=== PATIENT | male | born 1985 | race African-American/Black ===

== ENCOUNTER 2018-10-25 10:10 | Emergency (ER) | payer OTHER ==
[~2018-10-25] VITALS: Ht 172.7 cm; Wt 117.9 kg
[~2018-10-25 10:10] MED LIST: ALBU2.5V8 INH; PRED20TA PO
[2018-10-25 10:35] VITALS: BP 143/83
[2018-10-25] MEDS ORDERED: CEPH-264 PO (11:19)
[2018-10-25] MEDS ORDERED: NAPR-683 PO (11:19)
--- NOTE | 2018-10-25 11:20 | PHYS DOC ---
Past Medical History Past Medical History: Bronchitis (ERIKA RINCON MD) Past Surgical History: No Surgical History (ERIKA RINCON MD) Alcohol Use: None Drug Use: None (ERIKA RINCON MD) Adult General Chief Complaint Chief Complaint: TOE PROBLEM HPI HPI Patient is a 33 year old male who presents with complaining of left great ingrown toenail. Patient states he has had history of off-and-on problem with his left great toenail and seen at urgent care and took topical antibiotic with improvement of his condition but for the last 2 weeks has had painful bulging area in lateral side of left great toenail that does not getting better with topical antibiotic and pain medication. Patient denies fever and chills, injury , nausea and vomiting, focal neuro deficit. (ERIKA RINCON MD) Review of Systems Review of Systems Constitutional: Denies fever or chills [] Eyes: Denies change in visual acuity, redness, or eye pain [] HENT: Denies nasal congestion or sore throat [] Respiratory: Denies cough or shortness of breath [] Cardiovascular: No additional information not addressed in HPI [] GI: Denies abdominal pain, nausea, vomiting, bloody stools or diarrhea [] : Denies dysuria or hematuria [] Musculoskeletal: Denies back pain, reports joint pain [] Integument: Denies rash or skin lesions [] Neurologic: Denies headache, focal weakness or sensory changes [] Endocrine: Denies polyuria or polydipsia [] All other systems were reviewed and found to be within normal limits, except as documented in this note. (ERIKA RINCON MD) Allergies Allergies Allergies Coded Allergies Type Severity Reaction Last Updated Verified No Known Drug Allergies 03/22/14 No (CHRISTIANO CAICEDO APRN) Physical Exam Physical Exam Constitutional: Well developed, well nourished, mild distress, non-toxic appearance. [] HENT: Normocephalic, atraumatic. Eyes: PERRLA, EOMI, conjunctiva normal, no discharge. [] Neck: Normal range of motion, no tenderness, supple, no stridor. [] Cardiovascular:Heart rate regular rhythm, no murmur [] Lungs & Thorax: Bilateral breath sounds clear to auscultation [] Extremities: Left great toenail with marked erythema and area of inflamed tissue in lateral side of toenail without drainage of pus. Neurologic: Alert and oriented X 3, normal motor function, normal sensory function, no focal deficits noted. [] Psychologic: Affect normal, judgement normal, mood normal. [] (ERIKA RINCON MD) Current Patient Data Vital Signs Vital Signs Date Time Temp Pulse Resp B/P (MAP) Pulse Ox O2 Delivery O2 Flow Rate FiO2 10/25/18 10:35 98.7 90 18 143/83 (103) 97 Room Air 98.7 (CHRISTIANO CAICEDO APRN) EKG EKG [] (ERIKA RINCON MD) Radiology/Procedures Radiology/Procedures [] (ERIKA RINCON MD) Radiology/Procedures The patient's left great toe was cleaned with alcohol. Lidocaine was instilled and using an 11 blade the overgrowth of tissue was removed. Bleeding was controlled with pressure. He was then placed with nonadherent dressing and Coban. He tolerated the procedure well. (CHRISTIANO CAICEDO APRN) Course & Med Decision Making Course & Med Decision Making Evaluation of patient in ER showed 33-year-old male patient with complaining of left ingrown great toenail with inflamed tissue in lateral side of, that was removed by Sonia Caicedo nurse practitioner with improvement of his condition. Plan to discharge patient home with prescription of Keflex and ibuprofen and instruction follow up with podiatric Dr. Angel. (ERIKA RINCON MD) Dragon Disclaimer Dragon Disclaimer This electronic medical record was generated, in whole or in part, using a voice recognition dictation system. (ERIAK RINCON MD) Departure Departure Impression: Primary Impression: Ingrown toenail of left foot with infection Disposition: HOME, SELF-CARE (at 1117) Condition: IMPROVED Referrals: NO PCP (PCP) KAVYA ANGEL DPM Patient Instructions: Infected Ingrown Toenail Additional Instructions: Keep wound clean and dry Follow-up with on-call podiatrics Dr. Angel in 2 or 3 days Return to ER if not getting better Scripts Naproxen (NAPROSYN) 500 Mg Tablet 1 TAB PO BID for pain, #20 TAB Prov: ERIKA RINCON MD 4/14/19 Cephalexin (KEFLEX) 500 Mg Capsule 2 CAP PO Q12HR, #40 CAP Prov: ERIKA RINCON MD 10/25/18 ERIKA RINCON MD Oct 25, 2018 11:20 CHRISTIANO CAICEDO APRN Oct 25, 2018 11:22
== END 2018-10-25 11:41 | disposition home or self-care (01) ==
LOC: ER 10:10
DX: L60.0 Ingrowing nail (principal); L08.89 Other specified local infections of the skin and subcutaneous tissue
CPT/HCPCS: 11730; 99283

== ENCOUNTER 2018-12-06 19:42 | Emergency (ER) | payer OTHER ==
[~2018-12-06] VITALS: Ht 170.2 cm; Wt 117.9 kg
[~2018-12-06 19:42] MED LIST changes: +CEPH-264 PO; +NAPR-683 PO
[2018-12-06 19:55] VITALS: BP 140/77
[2018-12-06] MEDS ORDERED: SILVER NITRATE STICK TP ONE ×2 (20:08→20:30)
[2018-12-06] MEDS ORDERED: LIDOCAINE 1% PF 2 ML VIAL. ONE (20:08)
--- NOTE | 2018-12-06 20:18 | PHYS DOC ---
Past Medical History Past Medical History: Bronchitis Past Surgical History: No Surgical History Additional Information: non smoker Alcohol Use: None Drug Use: None Adult General Chief Complaint Chief Complaint: PAIN CONTROL HPI HPI Patient is a 33 year old male who presents with an ingrown toenail that has been ongoing for 2-3 weeks. He was here 3 weeks ago and had a procedure done on it. States it now keeps going back to become ingrown. Not tried interventions at home. Rates his pain 7 out of 10 and throbbing. Review of Systems Review of Systems Constitutional: Denies fever or chills [] Eyes: Denies change in visual acuity, redness, or eye pain [] HENT: Denies nasal congestion or sore throat [] Respiratory: Denies cough or shortness of breath [] Cardiovascular: No additional information not addressed in HPI [] GI: Denies abdominal pain, nausea, vomiting, bloody stools or diarrhea [] : Denies dysuria or hematuria [] Musculoskeletal: Denies back pain or joint pain [] Integument: Denies rash or skin lesions with exception of ingrown nail on L great toe. Neurologic: Denies headache, focal weakness or sensory changes [] Endocrine: Denies polyuria or polydipsia [] Complete systems were reviewed and found to be within normal limits, except as documented in this note. Current Medications Current Medications Current Medications Medications (Trade) Dose Ordered Sig/Anoop Start Time Stop Time Status Last Admin Dose Admin Lidocaine HCl (Lidocaine 1% 20ml Vial) 20 ml 1X ONCE 12/06/18 20:30 12/06/18 20:31 DC Lidocaine HCl (Xylocaine-Mpf 1% 2ml Vial) 2 ml STK-MED ONCE 12/06/18 20:08 12/06/18 20:09 DC Silver Nitrate/ Potassium Nitrate 1 each STK-MED ONCE 12/06/18 20:08 12/06/18 20:09 DC Allergies Allergies Allergies Coded Allergies Type Severity Reaction Last Updated Verified No Known Drug Allergies 03/22/14 No Physical Exam Physical Exam Constitutional: Well developed, well nourished, no acute distress, non-toxic appearance. [] HENT: Normocephalic, atraumatic, bilateral external ears normal, oropharynx moist, no oral exudates, nose normal. [] Eyes: PERRLA, EOMI, conjunctiva normal, no discharge. [] Neck: Normal range of motion, no tenderness, supple, no stridor. [] Cardiovascular:Heart rate regular rhythm, no murmur [] Lungs & Thorax: Bilateral breath sounds clear to auscultation [] Abdomen: Bowel sounds normal, soft, no tenderness, no masses, no pulsatile masses. [] Skin: Warm, dry, no erythema, no rash. [] Back: No tenderness, no CVA tenderness. [] Extremities: No tenderness, no cyanosis, no clubbing, ROM intact, no edema. [] Neurologic: Alert and oriented X 3, normal motor function, normal sensory function, no focal deficits noted. [] Psychologic: Affect normal, judgement normal, mood normal. [] Current Patient Data Vital Signs Vital Signs Date Time Temp Pulse Resp B/P (MAP) Pulse Ox O2 Delivery O2 Flow Rate FiO2 12/06/18 19:55 98.0 89 140/77 (98) 98 Room Air 98.0 EKG EKG [] Radiology/Procedures Radiology/Procedures Performed digital block on L great toe. Cleaned injection sites with alcohol and then injected 3 mL of lidocaine to numb the toe. Then performed partial toe nail removal and used silver nitrate to stop the bleeding and nail from growing back. No complications. Course & Med Decision Making Course & Med Decision Making Pertinent Labs and Imaging studies reviewed. (See chart for details) Will perform partial toenail removal. Will keep the nail from growing back using silver nitrate. Informed patient of risks and benefits of this procedure and he states that he doesn't want the nail to grow back and the problem to keep happening. Will perform procedure and then discharge home. Dragon Disclaimer Dragon Disclaimer This electronic medical record was generated, in whole or in part, using a voice recognition dictation system. Departure Departure Impression: Primary Impression: Paronychia due to ingrown nail Disposition: HOME, SELF-CARE Condition: STABLE Referrals: NO PCP (PCP) Additional Instructions: Can take Ibuprofen for pain per the label instructions. Follow up with primary care doctor as needed. Come back to ER as needed. AMANDA LUEVANO APRN December 06, 2018 20:18
[2018-12-06] MEDS ORDERED: LIDOCAINE 1% Multi-Dose 20 ML VIAL. INJ ONE (20:30)
== END 2018-12-06 21:43 | disposition home or self-care (01) ==
LOC: ER 19:42
DX: L03.032 Cellulitis of left toe (principal); L60.0 Ingrowing nail
CPT/HCPCS: 11730; 99283-25